=== PATIENT | female | born 1980 | race Caucasian/White ===

== ENCOUNTER 2016-12-16 19:28 | Emergency (ER) | payer MEDICARE, MEDICAID ==
[~2016-12-16 19:28] MED LIST: BACITRACIN OINTMENT TP; HYDROCODON-ACE1 EAC4 PO; LAMICTAL200 MG PO
--- NOTE | 2016-12-17 14:26 | ER ---
ADMIT: 12/16/2016 RM/LOC: ER [facility] MR#: [id number] [id number] [place], [place] [id number] ROCHELLE MCFADDEN [address] [place] [id number] Emergency Room Report SEX: F AGE: 36 : 1980 DATE: 12/16/2016 ADDENDUM: CHIEF COMPLAINT: Right 4th finger pain. HISTORY OF PRESENT ILLNESS: This is a 36-year-old female, who had her finger caught in a door. She does have a fracture of the middle phalanx. I am sending her home with a finger splint. Dayan for pain, having her ice. Follow up with her doctor in 1-2 weeks to recheck. We did also remove her ring in the ER. CLINICAL IMPRESSION: Fracture of right 4th middle phalanx. JOI Calixto / Trever Parsons MD / pilar JOB #: [id number] CC: Trever Parsons MD, Attending Physician Navid Styles MD, Family Physician
== END 2016-12-16 21:37 | disposition home or self-care (01) ==
LOC: ER 19:28
PROC: 2W3JX1Z Immobilization of Right Finger using Splint (ICD-10-PCS; principal; 2016-12-16)
DX: S62.604A Fracture of unspecified phalanx of right ring finger, initial encounter for closed fracture (principal); F41.9 Anxiety disorder, unspecified; Z88.8 Allergy status to other drugs, medicaments and biological substances; W23.0XXA Caught, crushed, jammed, or pinched between moving objects, initial encounter